=== PATIENT | male | born 1965 | race Caucasian/White ===

== ENCOUNTER 2022-04-16 08:45 | Emergency (ER) | payer BC, MEDICAID ==
[~2022-04-16] VITALS: Ht 177.8 cm; Wt 70.5 kg
[~2022-04-16 08:45] MED LIST: ASPI-611 PO; ATOR20TA PO; HYDR-4353 PO
[2022-04-16] MEDS ORDERED: ibuprofen tablet 400 MG TABLET PO ONE (08:55)
[2022-04-16] MEDS ORDERED: HYDROcodone/acetaminophen 10/325mg tab PO ONE (09:05)
[2022-04-16] MEDS ORDERED: propofol 10mg/ml 20ml vial IV ONE (09:40)
[2022-04-16] MEDS ORDERED: normal saline 1000ML IV soln IVB ONE (09:40)
--- NOTE | 2022-04-16 10:33 | NUR ---
Assisted MD Rodriguez with Orthoglass shortleg mahesh splint.
[2022-04-16] MEDS ORDERED: HYDR-3965 PO (11:56)
[2022-04-16 12:25] VITALS: BP 113/78
[2022-05-06] MEDS ORDERED: CHOL50002 PO (10:51)
== END 2022-04-16 12:27 | disposition home or self-care (01) ==
LOC: ER 08:45
DX: S82.491A Other fracture of shaft of right fibula, initial encounter for closed fracture (principal); S92.001A Unspecified fracture of right calcaneus, initial encounter for closed fracture; S82.51XA Displaced fracture of medial malleolus of right tibia, initial encounter for closed fracture; W18.39XA Other fall on same level, initial encounter; Y93.89 Activity, other specified; Y92.89 Other specified places as the place of occurrence of the external cause; Y99.8 Other external cause status
CPT/HCPCS: 27788; 27825; 73610; 73700; 96360; 99152; 99285; J2704; J7030; 26742; 27762; 28405; A4620; A6449

== ENCOUNTER 2024-12-04 14:37 | Outpatient (CLI) | payer MEDICAID ==
[~2024-12-04 14:37] MED LIST changes: -ASPI-611 PO; -ATOR20TA PO; +CHOL50002 PO; -HYDR-4353 PO
--- NOTE | 2024-12-05 03:44 | VASCULAR REPORT ---
EXAM: VASC VL IGNACIO ANKLE/BRACHIAL INDEX CLINICAL HISTORY: Lower extremity claudication Peripheral vascular disease COMPARISON: None TECHNIQUE: Bilateral systolic ankle and brachial pressures are obtained, with ankle pulse volume waveforms and i ndices. FINDINGS: Pressures: Right Left Brachial 116 mmHg 112 mmHg PT 84 mmHg 84 mmHg DP 120 mmHg 80 mmHg IGANCIO: Right Left 1.03 .72 IMPRESSION: Normal IGNACIO, right Moderate disease, left 1.0-1.4: normal 0.91-0.99 borderline 0.9: abnormal (i.e. PAD) 0.4-0.9: [id number] PAD <0.4: suggestive of severe PAD
--- NOTE | 2024-12-05 03:46 | VASCULAR REPORT ---
Right Lower Extremity Arterial Duplex Clinical History: Claudication Comparison: None Technique: Duplex Doppler evaluation including color Doppler and spectral/pulsed waveform analysis of the lower extremity arteries was performed. 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 IMPRESSION: Right mid superficial femoral artery appears occluded. Monophasic reconstituted flow from the right distal superficial femoral artery to the pedal artery. REFERENCE VALUES, [facility]) vascular Imaging Lab Criteria: Peak systolic velocity rang es (in cm/sec) are as follows: <150 cm/s - <20 % stenosis 150-200 cm/s - 20-49% stenosis 200-300 cm/s - 50-75% stenosis >300 cm/s -> 75% stenosis
--- NOTE | 2024-12-05 04:46 | RADIOLOGY REPORT ---
Procedure: CT CT CHEST LOW DOSE Reason for study/Clinical History: ENCNTR SCREEN FOR MALIGNANT NEOPLASM OF RESPIRATORY ORGANS Comparison Study: None available at time of dictation. TECHNIQUE: Multidetector CT of the chest was performed from the lung apices to the upper abdomen with out the use of intravenous contract. Axial, coronal and sagittal multiplanar reformats were performed . Radiation Dose Information: CT Dose: CTDI volume is 2.8 mGy. Dose-length product is 109 mGy*cm The dose indicators for CT are the volume Computed Tomography (CT) Dose Index (CTDIvol) and the Dose Length Product (DLP), and are measured in units of mGy and mGy-cm, respectively. These indicators are not patient dose, but values generated from the CT scanner acquisition factors. The report includes radiation exposure data for exposures received during this examination. FINDINGS: Lower neck: Normal thyroid. Lungs: No focal consolidation. No suspicious pulmonary nodule. Mild to moderate centrilobular emphyse ma. Heart/Vascular Structures: Cardiomegaly. Coronary artery calcifications. Vascular calcifications of t he aorta. Lymph Nodes: Numerous subcentimeter short axis bilateral axillary and mediastinal lymph nodes. Pleura: No pleural effusion or significant pneumothorax. Musculoskeletal: No acute osseous abnormality. Soft tissues: Normal. Upper abdomen: Limited portions of the upper abdomen are unremarkable. IMPRESSION: No suspicious pulmonary nodule. Numerous subcentimeter short axis bilateral axillary and mediastinal lymph nodes. Clinical correlatio n advised. Findings may be reactive. Neoplastic entity such as lymphoma are within differential consi derations. Clinical correlation advised. LUNG RADS Category 1: Continue annual screening with LDCT
== END 2024-12-04 23:59 | disposition home or self-care (01) ==
LOC: RAD 14:37
PROVIDERS: ATTEND Family Medicine
DX: Z12.2 Encounter for screening for malignant neoplasm of respiratory organs (principal); I73.9 Peripheral vascular disease, unspecified; I51.7 Cardiomegaly; I25.10 Atherosclerotic heart disease of native coronary artery without angina pectoris; R59.0 Localized enlarged lymph nodes; Z87.891 Personal history of nicotine dependence
CPT/HCPCS: 71271; 93922; 93926